=== PATIENT | male | born 1950 | race Caucasian/White ===

== ENCOUNTER 2021-04-22 09:39 | Emergency (ER) | payer OTHER ==
[2021-04-22 09:54] VITALS: BP 131/67; PULSE 68; TEMP 98.6; BMI 28.6
[2021-04-23 18:08] LABS: SARS-CoV-2 NAA Detected (Not Detected)
== END 2021-04-22 10:34 | disposition home or self-care (01) ==
LOC: FER 09:39
DX: Z11.52 Encounter for screening for COVID-19 (principal)
CPT/HCPCS: 71045-TC-FY; 99284-25; C9803; U0003; U0005